=== PATIENT | female | born 1985 | race Caucasian/White ===

== ENCOUNTER 2023-08-12 08:53 | Outpatient (CLI) | payer OTHER, SELFPAY ==
--- NOTE | 2023-08-12 09:02 | US_ITS ---
WS: [id number] RIGHT UPPER QUADRANT ULTRASOUND HISTORY: RUQ PAIN COMPARISON: None available. Liver: 16.1 cm in length. Normal size liver and echogenicity. No bile duct dilatation or mass. Portal Vein: Normal hepatopetal flow with monophasic waveform. Gallbladder: Normally distended gallbladder with no stones or wall thickening. CBD: 0.4 cm Pancreas: Normal size and echogenicity. Right kidney: 10.5 cm in length. Normal size and echogenicity. No hydronephrosis or mass. Aorta and IVC: Unremarkable abdominal aorta and IVC. No ascites. IMPRESSION: Normal RIGHT upper quadrant ultrasound.
--- NOTE | 2023-08-12 09:02 | US_ITS ---
WS: [id number] US pelv w/transvag [id number] HISTORY: ABDOMINAL MASS 2 CM BELOW UMBILICUS COMPARISON: None available. Uterus: 9.6 cm x 5.5 cm x 5.4 cm. Normal size retroverted uterus. No fibroid or mass identified. Endometrium: 1.1 cm. Normal. No mass or increased vascularity. Right ovary: 3.3 cm x 2.3 cm x 3.4 cm. Normal size and vascularity, no cystic or solid masses. Left ovary: 3.4 cm x 1.9 cm x 2.1 cm. Normal size and vascularity, no cystic or solid masses. No free fluid in the cul-de-sac. Imaging performed just below the umbilicus in the area of clinical concern demonstrates no abnormalit y. IMPRESSION: 1. Normal pelvic ultrasound. No fibroid. 2. Normal endometrium. 3. No ultrasound abnormality in the infraumbilical region.
== END 2023-08-12 08:54 | disposition home or self-care (01) ==
LOC: RAD 08:55
PROVIDERS: PCP Nurse Practitioner; Visit Provider Nurse Practitioner
DX: R19.09 Other intra-abdominal and pelvic swelling, mass and lump (principal); R10.11 Right upper quadrant pain
CPT/HCPCS: 76705; 76830; 76856

== ENCOUNTER 2024-06-05 09:16 | Outpatient (CLI) | payer OTHER, SELFPAY ==
--- NOTE | 2024-06-05 09:18 | CT_ITS ---
WS: [id number] CT ABDOMEN WITH AND WITHOUT CONTRAST CONTRAST HISTORY: ABDOMINAL MASS Pre and postcontrast imaging through the abdomen. Oral contrast has been provided. Coronal and sagitt al reformats are submitted. All CT scans at [facility] use at least one of these dose optimiz ation techniques: automated exposure control; mA and/or kV adjustment per patient size (includes targ eted exams where dose is matched to clinical indication); or iterative reconstruction. IV CONTRAST: Omnipaque 350; 100 mL IV. Oral contrast: Yes. DLP: 1372.03 mGy.cm COMPARISON: Pelvic ultrasound 08/12/2023 Lower thorax: Lung bases are clear. Heart is normal size. Small hiatal hernia. Liver/biliary system: Normal size with no intrahepatic dilatation. Gallbladder: Gallbladder is contracted without adjacent inflammation. Probably due to nonfasting. Pancreas: Normal size pancreas and pancreatic duct. No adjacent inflammation. Spleen: Normal size spleen. No mass or infarct. Adrenal glands: Normal. Right kidney: Normal. Left kidney: Normal. Aorta: Normal. Lymphadenopathy: None. Free fluid: None. GI tract: Unremarkable. Abdominal wall: Infraumbilical ventral abdominal wall hernia contains fat only. Orifice is 2.7 cm. Th ere is herniating omentum. There is an additional smaller fat-containing umbilical hernia. Small portion of the uterus was included. Mild fluid distention of the endometrial. May be related to the menstrual cycle. Visualized osseous structures: Unremarkable. CT/CT abdomen wo/w con [id number] IMPRESSION: 1. Infraumbilical midline abdominal wall hernia containing omentum only. 2. Small umbilical hernia containing fat only. 3. No acute abdominal abnormalities are identified. No renal obstruction.
[2024-06-05] MEDS: iohexol 350 mg/mL 500 mL Btl (per mL) IV (10:24)
[2024-06-05] MEDS: iohexol 350 mg/mL 500 mL Btl (per mL) PO (10:24)
== END 2024-06-05 09:17 | disposition home or self-care (01) ==
LOC: RAD 09:17
PROVIDERS: PCP Nurse Practitioner; Visit Provider Nurse Practitioner
DX: R19.00 Intra-abdominal and pelvic swelling, mass and lump, unspecified site (principal); K42.9 Umbilical hernia without obstruction or gangrene; K43.9 Ventral hernia without obstruction or gangrene
CPT/HCPCS: 74170; Q9967

== ENCOUNTER → 2024-07-31 09:05 | Outpatient (BNVA) | payer OTHER, SELFPAY | PROVIDERS: PCP Nurse Practitioner; Referring Provider Nurse Practitioner; Visit Provider Nurse Practitioner Women's Health | DX: Z34.90 Encounter for supervision of normal pregnancy, unspecified, unspecified trimester (principal) | CPT/HCPCS: 80307; 81025; 84443; 85025; 86592; 86762; 86803; 86850; 86900; 87086; 87340; 87491; 87591; 87806 ==

== ENCOUNTER → 2024-08-02 08:06 | Outpatient (BNVA) | payer OTHER, SELFPAY | PROVIDERS: PCP Nurse Practitioner; Visit Provider Nurse Practitioner Women's Health | DX: Z36.87 Encounter for antenatal screening for uncertain dates (principal); Z3A.15 15 weeks gestation of pregnancy | CPT/HCPCS: 76815 ==

== ENCOUNTER → 2024-09-06 09:36 | Outpatient (BNVA) | payer OTHER, SELFPAY | PROVIDERS: PCP Nurse Practitioner; Visit Provider Obstetrics & Gynecology | DX: Z34.92 Encounter for supervision of normal pregnancy, unspecified, second trimester (principal); Z3A.20 20 weeks gestation of pregnancy | CPT/HCPCS: 76805 ==

== ENCOUNTER → 2024-10-02 08:46 | Outpatient (BNVA) | payer OTHER, SELFPAY | PROVIDERS: PCP Nurse Practitioner; Visit Provider Nurse Practitioner Women's Health | DX: Z34.90 Encounter for supervision of normal pregnancy, unspecified, unspecified trimester (principal) | CPT/HCPCS: 82950; 84315; 87491; 87591; 87661 ==

== ENCOUNTER → 2024-11-06 14:38 | Outpatient (BNVA) | payer OTHER, SELFPAY | PROVIDERS: PCP Nurse Practitioner; Visit Provider Obstetrics & Gynecology | DX: O09.90 Supervision of high risk pregnancy, unspecified, unspecified trimester (principal); Z3A.28 28 weeks gestation of pregnancy | CPT/HCPCS: 84315 ==

== ENCOUNTER → 2024-11-13 13:59 | Outpatient (BNVA) | payer OTHER, SELFPAY | PROVIDERS: PCP Nurse Practitioner; Visit Provider Obstetrics & Gynecology | DX: Z34.80 Encounter for supervision of other normal pregnancy, unspecified trimester (principal) | CPT/HCPCS: 84315 ==

== ENCOUNTER → 2024-11-27 11:05 | Outpatient (BNVA) | payer OTHER, SELFPAY | PROVIDERS: PCP Nurse Practitioner; Visit Provider Obstetrics & Gynecology | DX: Z34.83 Encounter for supervision of other normal pregnancy, third trimester (principal) | CPT/HCPCS: 84315 ==

== ENCOUNTER → 2024-12-20 13:18 | Outpatient (BNVA) | payer OTHER, SELFPAY | PROVIDERS: PCP Nurse Practitioner; Visit Provider Nurse Practitioner Women's Health | DX: O35.9XX0 Maternal care for (suspected) fetal abnormality and damage, unspecified, not applicable or unspecified (principal); Z3A.35 35 weeks gestation of pregnancy | CPT/HCPCS: 76816 ==

== ENCOUNTER → 2024-12-25 10:39 | Outpatient (BNVA) | payer OTHER, SELFPAY | PROVIDERS: PCP Nurse Practitioner; Visit Provider Obstetrics & Gynecology | DX: O09.93 Supervision of high risk pregnancy, unspecified, third trimester (principal) | CPT/HCPCS: 84315; 87081 ==

== ENCOUNTER → 2025-01-01 09:42 | Outpatient (BNVA) | payer OTHER, SELFPAY | PROVIDERS: PCP Nurse Practitioner; Visit Provider Obstetrics & Gynecology | DX: O09.893 Supervision of other high risk pregnancies, third trimester (principal) | CPT/HCPCS: 84315 ==

== ENCOUNTER → 2025-01-08 10:11 | Outpatient (BNVA) | payer OTHER, SELFPAY | PROVIDERS: PCP Nurse Practitioner; Visit Provider Obstetrics & Gynecology | DX: O09.899 Supervision of other high risk pregnancies, unspecified trimester (principal) | CPT/HCPCS: 84315 ==

== ENCOUNTER 2025-01-12 05:35 | Inpatient (IN) | payer OTHER, SELFPAY ==
--- NOTE | 2025-01-10 11:00 | ANES.PREANE2 ---
Pre-Anesthetic Assessment Height/Weight: Height 1.7 m Operation Date: 01/12/25 07:20 Proposed Procedures p Section Repeat 08612, O34.219(Not Applicable) - Peter Kam MD Familial anesthetic complications: None Was Beta Conor taken within 24 hours: N/A Was Clonidine taken within 24 hours: N/A Social Tobacco and No alcohol Exam alert, oriented x 3, clear to auscultation bilaterally and regular rate & rhythm Airway Mallampati: Class I Dentition: chipped and other (3 missing) Anesthetic Plan ASA status: 2 Anesthesia: Regional (specify below) Other: spinal Risk of > 500 ml blood loss (7ml/kg in children): Yes, adequate IV access and fluids planned Other Pertinent Information Advanced maternal age Medications/Allergies Home Medications ?Medication ?Instructions ?Recorded ?Confirmed ?Last Taken ?Type vits no.126-ferrous fum tab PO 07/31/24 01/08/25 Unknown History 28 mg iron-folic acid 800 mcg tablet (Classic ) acetaminophen 325 mg capsule 325 mg PO QID PRN 09/25/24 01/08/25 Unknown History Allergies Allergy/AdvReac Type Severity Reaction Status Date / Time No Known Allergies Allergy Verified 01/08/25 10:18 [facility] Anesthesia Medical History delivery delivered Family History Father Hypertension Diabetes High cholesterol Social History Smoking and tobacco/nicotine status: current some day tobacco/nicotine user Data Anesthesia Cardiac Studies: No Data to Display
[2025-01-12] VITALS (33 sets, daily range): BP systolic 97–127; BP diastolic 47–75; PULSE 55–83; RESP 15–17; TEMP 36.8–37; O2SAT 98; BMI 34.0
--- OUTSIDE RECORDS SUMMARY | 2025-01-12 05:40 | XMS_ITS | Continuity of Care Document ---
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 It does not include entries that were removed or entered in error. Problem Status Onset Date Problem Type Date of Resolution Comments Source Adult-onset obesity (SNOMED CT 090036756) Active Condition [place] [facility] Anxiety disorder Active Condition [place] [facility] Depressed Active Condition [place] [facility] Exposure to potentially hazardous substance Active Condition [facility] Hip Pain Active Condition [place] [facility] Hyperlipidemia (SCT 30114490) Active Condition [facility] Low back pain (SNOMED CT 263440323) Active Condition [place] [facility] Nicotine dependence (SNOMED CT 77618997) Active Condition [place] [facility] Psoriasis (SNOMED CT 6732920) Active Condition [place] [facility] Sacroiliitis (ICD-9-CM 720.2) Active Condition [place] [facility] Seasonal allergic rhinitis (SNOMED CT 516435725) Active Condition [place] [facility] Vitamin D Deficiency (SCT 5861221) Active Condition [facility] Routine General Medical Examination at a Health Care Facility * Inactive Condition 08/09/2019 [place] [facility] Diagnosis: ICD-10-CM Z3A.34 34 weeks gestation of Active Diagnosis [place] [facility] Diagnosis: ICD-10-CM R68.89 Other general symptoms and signs Active Diagnosis [place] [facility] Diagnosis: ICD-10-CM Z12.39 Encounter for oth screening for malignant neoplasm of breast Active Diagnosis [place] [facility] Diagnosis: ICD-10-CM Z3A.11 11 weeks gestation of Active Diagnosis [place] [facility] Diagnosis: ICD-10-CM Z3A.20 20 weeks gestation of Active Diagnosis [place] [facility] Diagnosis: ICD-10-CM Z00.00 Encntr for general adult medical exam w/o abnormal findings Active Diagnosis [facility] Diagnosis: ICD-10-CM R19.09 Other intra-abdominal and pelvic swelling, mass and lump Active Diagnosis [facility] Diagnosis: ICD-10-CM R19.07 Generalized intra-abd and pelvic swelling, mass and lump Active Diagnosis [facility] Diagnosis: ICD-10-CM Z00.01 Encounter for general adult medical exam w abnormal findings Active Diagnosis [facility] Medications Combined list of outpatient medications from [facility] and [facility] facilities.Medications provided include 1) outpatient medications from the last 15 months, and 2) patient-reported medications. Medication Details Route Status Patient Instructions Prescription Expires Prescription Number Last Dispense Date Ordering Provider Order Date Order Qty Source MULTIVITAMI NS W/MINERALS, CAP/TAB TAKE 1 TABLET BY MOUTH ONCE A DAY FOR NUTRITIO N/DIETAR Y SUPPLEME NTATION TAKE WITH FOOD ORAL ACTIVE 07/10/2025 [id number] Tonio RUELAS R 2023 100 [facility] NYSTATIN [id number]/G M CREAM,TOP APPLY LIBERALL Y TO AFFECTED AREA(S) ONCE A DAY NEEDED FOR FUNGAL SKIN INFECTIO N - TOPICAL USE ONLY. TOPICA L ACTIVE 05/31/2025 [id number] 4 Tonio RUELAS R 2023 45 [facility] Allergies, Adverse Reactions, Alerts Combined list of allergies from [facility] and [facility] facilities. It does not include entries that were removed or entered in error. Substance Category Reaction Severity Reaction type Status Date Reported Comments Source WELLBUTRIN Propensity to adverse reactions to drug (finding) Urticaria active 1 [facility] Immunizations Combined list of available immunizations from the [facility] and [facility] facilities. 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 INFLUENZA, INJECTABLE, QUADRIVALENT, PRESERVATIVE FREE 2017 150 complet ed [facility] INFLUENZA, SEASONAL, INJECTABLE, PRESERVATIVE FREE 2014 140 complet ed [facility] PNEUMOCOCCAL POLYSACCHARID E PPV23 2014 33 complet ed [facility] Results Combined list of recent chemistry, hematology and other laboratory results from Department of Defense and Veterans Affairs, ranging from 15 months to all on record, depending upon the facility. Order Name Results Value Reference Range Date Interpretation Specimen Comments Source ANCILLARY HCG-PB CHORIOGONAD OTROPIN ( TEST) [PRESENCE] IN URINE Positive 07/03 Specimen Type: URINE Comment: Test performed by: Marah Bowers [id number] Meter #: [id number] Ordering Provider: EZEKIEL RUELAS R Report Released Date/Time: Jul 03, 2024 09:53 AM Reporting Lab: [facility] [address] [facility] [address] Performing Lab: [facility] [address] [facility] [address] [facility] VITAMIN D, 25-HYDROX Y 25-HYDROXYV ITAMIN D3 [MASS/VOLUM E] IN SERUM OR PLASMA 26.6 ng/mL 30 - 96 07/03 L Specimen Type: SERUM No comment entered. Ordering Provider: EZEKIEL RUELAS R Report Released Date/Time: Jul 03, 2024 08:20 AM Reporting Lab: [place] [facility] [address] [place] [address] Performing Lab: [place] [facility] [address] [place] [address] [facility] TSH (MA-PB) THYROTROPIN [UNITS/VOLU ME] IN SERUM OR PLASMA 0.794 u[IU]/mL 0.47 - 5 07/03 Specimen Type: SERUM No comment entered. Ordering Provider: EZEKIEL RUELAS R Report Released Date/Time: Jul 03, 2024 08:20 AM Reporting Lab: [place] [facility] [address] [place] [address] Performing Lab: [place] [facility] [address] [place] [address] [facility] CHOLESTER OL PANEL (PB) CHOLESTEROL [MASS/VOLUM E] IN SERUM OR PLASMA 154 mg/dL 0 - 200 07/03 Specimen Type: PLASMA No comment entered. Ordering Provider: EZEKIEL RUELAS R Report Released Date/Time: Jul 03, 2024 08:20 AM Reporting Lab: [place] [facility] [address] [place] [address] Performing Lab: [place] [facility] [address] [place] [address] [facility] CHOLESTER OL PANEL (PB) TRIGLYCERID E [MASS/VOLUM E] IN SERUM OR PLASMA 109 mg/dL 0 - 150 07/03 Specimen Type: PLASMA No comment entered. Ordering Provider: EZEKIEL RUELAS R Report Released Date/Time: Jul 03, 2024 08:20 AM Reporting Lab: [place] [facility] [address] [place] [address] Performing Lab: [place] [facility] [address] [place] [address] [facility] CHOLESTER OL PANEL (PB) CHOLESTEROL IN LDL [MASS/VOLUM E] IN SERUM OR PLASMA BY CALCULATION 95.2 mg/dL 07/03 Specimen Type: PLASMA No comment entered. Ordering Provider: EZEKIEL RUELAS R Report Released Date/Time: Jul 03, 2024 08:20 AM Reporting Lab: [place] [facility] [address] [place] [address] Performing Lab: [place] [facility] [address] [place] [address] [facility] CHOLESTER OL PANEL (PB) CHOLESTEROL IN HDL [MASS/VOLUM E] IN SERUM OR PLASMA 37.0 mg/dL 40 07/03 L Specimen Type: PLASMA No comment entered. Ordering Provider: EZEKIEL RUELAS R Report Released Date/Time: Jul 03, 2024 08:20 AM Reporting Lab: [place] [facility] [address] [place] [address] Performing Lab: [place] [facility] [address] [place] [address] [facility] CHOLESTER OL PANEL (PB) CHOLESTEROL IN HDL/CHOLEST KING.TOTAL [MASS RATIO] IN SERUM OR PLASMA 24.0 25 07/03 Specimen Type: PLASMA No comment entered. Ordering Provider: EZEKIEL RUELAS R Report Released Date/Time: Jul 03, 2024 08:20 AM Reporting Lab: [place] [facility] [address] [place] [address] Performing Lab: [place] [facility] [address] [place] [address] [facility] URINALYSI S (STL-PB) COLOR OF URINE Colorless 07/03 Specimen Type: URINE No comment entered. Ordering Provider: EZEKIEL RUELAS R Report Released Date/Time: Jul 03, 2024 08:20 AM Reporting Lab: [place] [facility] [address] [place] [address] Performing Lab: [place] [facility] [address] [place] [address] [facility] URINALYSI S (STL-PB) BILIRUBIN.T OTAL [PRESENCE] IN URINE BY TEST STRIP NEGATIVEm g/dL 07/03 Specimen Type: URINE No comment entered. Ordering Provider: EZEKIEL RUELAS R Report Released Date/Time: Jul 03, 2024 08:20 AM Reporting Lab: [place] [facility] [address] [place] [address] Performing Lab: [place] [facility] [address] [place] [address] [facility] URINALYSI S (STL-PB) PH OF URINE BY TEST STRIP 7.5 5.0 - 8.0 07/03 Specimen Type: URINE No comment entered. Ordering Provider: EZEKIEL RUELAS R Report Released Date/Time: Jul 03, 2024 08:20 AM Reporting Lab: [place] [facility] [address] [place] [address] Performing Lab: [place] [facility] [address] [place] [address] [facility] URINALYSI S (STL-PB) APPEARANCE OF URINE CLEAR 07/03 Specimen Type: URINE No comment entered. Ordering Provider: EZEKIEL RUELAS R Report Released Date/Time: Jul 03, 2024 08:20 AM Reporting Lab: [place] [facility] [address] [place] [address] Performing Lab: [place] [facility] [address] [place] [address] [facility] URINALYSI S (STL-PB) NITRITE [PRESENCE] IN URINE BY TEST STRIP NEGATIVEm g/dL 07/03 Specimen Type: URINE No comment entered. Ordering Provider: EZEKIEL RUELAS R Report Released Date/Time: Jul 03, 2024 08:20 AM Reporting Lab: [place] [facility] [address] [place] [address] Performing Lab: [place] [facility] [address] [place] [address] [facility] URINALYSI S (STL-PB) GLUCOSE [MASS/VOLUM E] IN URINE BY TEST STRIP NORMALmg/ dL 07/03 Specimen Type: URINE No comment entered. Ordering Provider: EZEKIEL RUELAS R Report Released Date/Time: Jul 03, 2024 08:20 AM Reporting Lab: [place] [facility] [address] [place] [phone] Performing Lab: [place] [facility] [address] [place] [address] [facility] URINALYSI S (STL-PB) PROTEIN [MASS/VOLUM E] IN URINE BY TEST STRIP NEGATIVEm g/dL - 20 07/03 Specimen Type: URINE No comment entered. Ordering Provider: EZEKIEL RUELAS R Report Released Date/Time: Jul 03, 2024 08:20 AM Reporting Lab: [place] [facility] [address] [place] [address] Performing Lab: [place] [facility] [address] [place] [address] [facility] URINALYSI S (STL-PB) URN.UROBILI NOGEN NORMALmg/ dL 07/03 Specimen Type: URINE No comment entered. Ordering Provider: EZEKIEL RUELAS R Report Released Date/Time: Jul 03, 2024 08:20 AM Reporting Lab: [place] [facility] [address] [place] [phone] Performing Lab: [place] [facility] [address] [place] [address] [facility] URINALYSI S (STL-PB) HEMOGLOBIN [MASS/VOLUM E] IN URINE BY TEST STRIP NEGATIVEm g/dL 07/03 Specimen Type: URINE No comment entered. Ordering Provider: EZEKIEL RUELAS R Report Released Date/Time: Jul 03, 2024 08:20 AM Reporting Lab: [place] [facility] [address] [place] [address] Performing Lab: [place] [facility] [address] [place] [address] [facility] URINALYSI S (STL-PB) KETONES [MASS/VOLUM E] IN URINE BY TEST STRIP NEGATIVEm g/dL 07/03 Specimen Type: URINE No comment entered. Ordering Provider: EZEKIEL RUELAS R Report Released Date/Time: Jul 03, 2024 08:20 AM Reporting Lab: [place] [facility] [address] [place] [address] Performing Lab: [place] [facility] [address] [place] [address] [facility] URINALYSI S (STL-PB) URN.LEUK.ES T. NEGATIVE 07/03 Specimen Type: URINE No comment entered. Ordering Provider: EZEKIEL RUELAS R Report Released Date/Time: Jul 03, 2024 08:20 AM Reporting Lab: [place] [facility] [address] [place] [phone] Performing Lab: [place] [facility] [address] [place] [address] [facility] URINALYSI S (STL-PB) SPECIFIC GRAVITY OF URINE 1.005 1.005 - 1.029 07/03 Specimen Type: URINE No comment entered. Ordering Provider: EZEKIEL RUELAS R Report Released Date/Time: Jul 03, 2024 08:20 AM Reporting Lab: [place] [facility] [address] [place] [address] Performing Lab: [place] [facility] [address] [place] [address] [facility] HGA1C HEMOGLOBIN A1C/HEMOGLO BIN.TOTAL IN BLOOD 5.6 4.0 - 6.0 07/03 Specimen Type: BLOOD No comment entered. Ordering Provider: EZEKIEL RUELAS R Report Released Date/Time: Jul 03, 2024 08:20 AM Reporting Lab: [place] [facility] [address] [place] [address] Performing Lab: [place] [facility] [address] [place] [address] [facility] COMPREHEN SIVE METABOLIC PANEL CREATININE [MASS/VOLUM E] IN SERUM OR PLASMA 0.66 mg/dL 0.6 - 1.1 07/03 Specimen Type: PLASMA No comment entered. Ordering Provider: EZEKIEL RUELAS R Report Released Date/Time: Jul 03, 2024 08:20 AM Reporting Lab: [place] [facility] [address] [place] [address] Performing Lab: [place] [facility] [address] [place] [address] [facility] COMPREHEN SIVE METABOLIC PANEL UREA NITROGEN [MASS/VOLUM E] IN SERUM OR PLASMA 5 mg/dL 9 - 25 07/03 L Specimen Type: PLASMA No comment entered. Ordering Provider: EZEKILE RUELAS R Report Released Date/Time: Jul 03, 2024 08:20 AM Reporting Lab: [place] [facility] [address] [place] [address] Performing Lab: [place] [facility] [address] [place] [address] [facility] COMPREHEN SIVE METABOLIC PANEL GLUCOSE [MASS/VOLUM E] IN SERUM OR PLASMA 85 mg/dL 72 - 99 07/03 Specimen Type: PLASMA No comment entered. Ordering Provider: EZEKIEL RUELAS R Report Released Date/Time: Jul 03, 2024 08:20 AM Reporting Lab: [place] [facility] [address] [place] [address] Performing Lab: [place] [facility] [address] [place] [address] [facility] COMPREHEN SIVE METABOLIC PANEL SODIUM [MOLES/VOLU ME] IN SERUM OR PLASMA 136 meq/L 136 - 145 07/03 Specimen Type: PLASMA No comment entered. Ordering Provider: EZEKIEL RUELAS R Report Released Date/Time: Jul 03, 2024 08:20 AM Reporting Lab: [place] [facility] [address] [place] [address] Performing Lab: [place] [facility] [address] [place] [address] [facility] COMPREHEN SIVE METABOLIC PANEL POTASSIUM [MOLES/VOLU ME] IN SERUM OR PLASMA 4.2 meq/L 3.5 - 5 07/03 Specimen Type: PLASMA No comment entered. Ordering Provider: EZEKIEL RUELAS R Report Released Date/Time: Jul 03, 2024 08:20 AM Reporting Lab: [place] [facility] [address] [place] [address] Performing Lab: [place] [facility] [address] [place] [address] [facility] COMPREHEN SIVE METABOLIC PANEL CHLORIDE [MOLES/VOLU ME] IN SERUM OR PLASMA 107 meq/L 98 - 107 07/03 Specimen Type: PLASMA No comment entered. Ordering Provider: EZEKIEL RUELAS R Report Released Date/Time: Jul 03, 2024 08:20 AM Reporting Lab: [place] [facility] [address] [place] [address] Performing Lab: [place] [facility] [address] [place] [address] [facility] COMPREHEN SIVE METABOLIC PANEL CARBON DIOXIDE, TOTAL [MOLES/VOLU ME] IN SERUM OR PLASMA 20 meq/L 22 - 31 07/03 L Specimen Type: PLASMA No comment entered. Ordering Provider: EZEKIEL RUELAS R Report Released Date/Time: Jul 03, 2024 08:20 AM Reporting Lab: [place] [facility] [address] [place] [address] Performing Lab: [place] [facility] [address] [place] [address] [facility] COMPREHEN SIVE METABOLIC PANEL CALCIUM [MASS/VOLUM E] IN SERUM OR PLASMA 9.2 mg/dL 8.4 - 10.4 07/03 Specimen Type: PLASMA No comment entered. Ordering Provider: EZEKIEL RUELAS R Report Released Date/Time: Jul 03, 2024 08:20 AM Reporting Lab: [place] [facility] [address] [place] [address] Performing Lab: [place] [facility] [address] [place] [address] [facility] COMPREHEN SIVE METABOLIC PANEL PROTEIN [MASS/VOLUM E] IN SERUM OR PLASMA 6.6 g/dL 6 - 8.6 07/03 Specimen Type: PLASMA No comment entered. Ordering Provider: EZEKIEL RUELAS R Report Released Date/Time: Jul 03, 2024 08:20 AM Reporting Lab: [place] [facility] [address] [place] [address] Performing Lab: [place] [facility] [address] [place] [address] [facility] COMPREHEN SIVE METABOLIC PANEL ALBUMIN [MASS/VOLUM E] IN SERUM OR PLASMA 4.0 g/dL 3.4 - 5 07/03 Specimen Type: PLASMA No comment entered. Ordering Provider: EZEKIEL RUELAS R Report Released Date/Time: Jul 03, 2024 08:20 AM Reporting Lab: [place] [facility] [address] [place] [address] Performing Lab: [place] [facility] [address] [place] [address] [facility] COMPREHEN SIVE METABOLIC PANEL BILIRUBIN.T OTAL [MASS/VOLUM E] IN SERUM OR PLASMA 0.2 mg/dL 0.2 - 1.2 07/03 Specimen Type: PLASMA No comment entered. Ordering Provider: EZEKIEL RUELAS R Report Released Date/Time: Jul 03, 2024 08:20 AM Reporting Lab: [place] [facility] [address] [place] [address] Performing Lab: [place] [facility] [address] [place] [address] [facility] COMPREHEN SIVE METABOLIC PANEL ALKALINE PHOSPHATASE [ENZYMATIC ACTIVITY/VO LUME] IN SERUM OR PLASMA 38 U/L 40 - 150 07/03 L Specimen Type: PLASMA No comment entered. Ordering Provider: EZEKIEL RUELAS R Report Released Date/Time: Jul 03, 2024 08:20 AM Reporting Lab: [place] [facility] [address] [place] [address] Performing Lab: [place] [facility] [address] [place] [address] [facility] COMPREHEN SIVE METABOLIC PANEL ASPARTATE AMINOTRANSF ERASE [ENZYMATIC ACTIVITY/VO LUME] IN SERUM OR PLASMA 15 U/L 5 - 34 07/03 Specimen Type: PLASMA No comment entered. Ordering Provider: EZEKIEL RUELAS R Report Released Date/Time: Jul 03, 2024 08:20 AM Reporting Lab: [place] [facility] [address] [place] [address] Performing Lab: [place] [facility] [address] [place] [facility] [facility] COMPREHEN SIVE METABOLIC PANEL ALANINE AMINOTRANSF ERASE [ENZYMATIC ACTIVITY/VO LUME] IN SERUM OR PLASMA 18 U/L 8 - 40 07/03 Specimen Type: PLASMA No comment entered. Ordering Provider: EZEKIEL RUELAS R Report Released Date/Time: Jul 03, 2024 08:20 AM Reporting Lab: [place] [facility] [address] [place] [address] Performing Lab: [place] [facility] [address] [place] [address] [facility] COMPREHEN SIVE METABOLIC PANEL GLOMERULAR FILTRATION RATE/1.73 SQ M.PREDICTED [VOLUME RATE/AREA] IN SERUM, PLASMA OR BLOOD BY CREATININE- BASED FORMULA (CKD-EPI 2020) 114 07/03 Specimen Type: PLASMA No comment entered. Ordering Provider: EZEKIEL RUELAS R Report Released Date/Time: Jul 03, 2024 08:20 AM Reporting Lab: [place] [facility] [address] [place] [phone] Performing Lab: [place] [facility] [address] [place] [address] [facility] CBC LEUKOCYTES [#/VOLUME] IN BLOOD BY AUTOMATED COUNT 14.2 10*3/uL 3.6 - 11.2 07/03 H Specimen Type: BLOOD No comment entered. Ordering Provider: EZEKIEL RUELAS R Report Released Date/Time: Jul 03, 2024 08:20 AM Reporting Lab: [place] [facility] [address] [place] [id number] Performing Lab: [place] [facility] [address] [place] [address] [facility] CBC ERYTHROCYTE S [#/VOLUME] IN BLOOD BY AUTOMATED COUNT 4.62 10*6/uL 3.60 - 5.00 07/03 Specimen Type: BLOOD No comment entered. Ordering Provider: EZEKIEL RUELAS R Report Released Date/Time: Jul 03, 2024 08:20 AM Reporting Lab: [place] [facility] [address] [place] [id number] Performing Lab: [place] [facility] [address] [place] [id number] [facility] CBC HEMOGLOBIN [MASS/VOLUM E] IN BLOOD 14.4 g/dL 11.0 - 14.9 07/03 Specimen Type: BLOOD No comment entered. Ordering Provider: EZEKIEL RUELAS R Report Released Date/Time: Jul 03, 2024 08:20 AM Reporting Lab: [place] [facility] [address] [place] [id number] Performing Lab: [place] [facility] [address] [place] [id number] [facility] CBC HEMATOCRIT [VOLUME FRACTION] OF BLOOD 41.6 32.6 - 43.4 07/03 Specimen Type: BLOOD No comment entered. Ordering Provider: EZEKIEL RUELAS R Report Released Date/Time: Jul 03, 2024 08:20 AM Reporting Lab: [place] [facility] [address] [place] [facility] Performing Lab: [place] [facility] [address] [place] [id number] [facility] CBC MCV [ENTITIC VOLUME] BY AUTOMATED COUNT 90.0 fL 80.0 - 100.0 07/03 Specimen Type: BLOOD No comment entered. Ordering Provider: EZEKIEL RUELAS R Report Released Date/Time: Jul 03, 2024 08:20 AM Reporting Lab: [place] [facility] [address] [place] [address] Performing Lab: [place] [facility] [address] [place] [address] [facility] CBC MCH [ENTITIC MASS] BY AUTOMATED COUNT 31.2 pg 27.0 - 34.0 07/03 Specimen Type: BLOOD No comment entered. Ordering Provider: EZEKIEL RUELAS R Report Released Date/Time: Jul 03, 2024 08:20 AM Reporting Lab: [place] [facility] [address] [place] [phone] Performing Lab: [place] [facility] [address] [place] [address] [facility] CBC MCHC [MASS/VOLUM E] BY AUTOMATED COUNT 34.6 g/dL 33.0 - 36.0 07/03 Specimen Type: BLOOD No comment entered. Ordering Provider: EZEKIEL RUELAS R Report Released Date/Time: Jul 03, 2024 08:20 AM Reporting Lab: [place] [facility] [address] [place] [phone] Performing Lab: [place] [facility] [address] [place] [address] [facility] CBC PLATELETS [#/VOLUME] IN BLOOD BY AUTOMATED COUNT 327 10*3/uL 150 - 400 07/03 Specimen Type: BLOOD No comment entered. Ordering Provider: EZEKIEL RUELAS R Report Released Date/Time: Jul 03, 2024 08:20 AM Reporting Lab: [place] [facility] [address] [place] [phone] Performing Lab: [place] [facility] [address] [place] [address] [facility] CBC PLATELET MEAN VOLUME [ENTITIC VOLUME] IN BLOOD BY AUTOMATED COUNT 11.2 fL 7.5 - 11.2 07/03 Specimen Type: BLOOD No comment entered. Ordering Provider: EZEKIEL RUELAS R Report Released Date/Time: Jul 03, 2024 08:20 AM Reporting Lab: [place] [facility] [address] [place] [address] Performing Lab: [place] [facility] [address] [place] [address] [facility] CBC ERYTHROCYTE DISTRIBUTIO N WIDTH [RATIO] BY AUTOMATED COUNT 13.2 11.8 - 15.1 07/03 Specimen Type: BLOOD No comment entered. Ordering Provider: EZEKIEL RUELAS R Report Released Date/Time: Jul 03, 2024 08:20 AM Reporting Lab: [place] [facility] [address] [place] [phone] Performing Lab: [place] [facility] [address] [place] [address] [facility] CBC LYMPHOCYTES /100 LEUKOCYTES IN BLOOD BY AUTOMATED COUNT 13.7 07/03 Specimen Type: BLOOD No comment entered. Ordering Provider: EZEKIEL RUELAS R Report Released Date/Time: Jul 03, 2024 08:20 AM Reporting Lab: [place] [facility] [address] [place] [phone] Performing Lab: [place] [facility] [address] [place] [address] [facility] CBC MONOCYTES/1 00 LEUKOCYTES IN BLOOD BY AUTOMATED COUNT 5.1 07/03 Specimen Type: BLOOD No comment entered. Ordering Provider: EZEKIEL RUELAS R Report Released Date/Time: Jul 03, 2024 08:20 AM Reporting Lab: [place] [facility] [address] [place] [id number] Performing Lab: [place] [facility] [address] [place] [address] [facility] CBC NEUTROPHILS /100 LEUKOCYTES IN BLOOD BY AUTOMATED COUNT 77.6 07/03 Specimen Type: BLOOD No comment entered. Ordering Provider: EZEKIEL RUELAS R Report Released Date/Time: Jul 03, 2024 08:20 AM Reporting Lab: [place] [facility] [address] [place] [address] Performing Lab: [place] [facility] [address] [place] [address] [facility] CBC EOSINOPHILS /100 LEUKOCYTES IN BLOOD BY AUTOMATED COUNT 2.4 07/03 Specimen Type: BLOOD No comment entered. Ordering Provider: EZEKIEL RUELAS R Report Released Date/Time: Jul 03, 2024 08:20 AM Reporting Lab: [place] [facility] [address] [place] [address] Performing Lab: [place] [facility] [address] [place] [address] [place] [address] [facility] CBC BASOPHILS/1 00 LEUKOCYTES IN BLOOD BY AUTOMATED COUNT 0.6 07/03 Specimen Type: BLOOD No comment entered. Ordering Provider: EZEKIEL RUELAS R Report Released Date/Time: Jul 03, 2024 08:20 AM Reporting Lab: [place] [facility] [address] [place] [address] Performing Lab: [place] [facility] [address] [place] [address] [place] [address] [facility] CBC LYMPHOCYTES [#/VOLUME] IN BLOOD BY AUTOMATED COUNT 1.94 10*3/uL 0.77 - 4.50 07/03 Specimen Type: BLOOD No comment entered. Ordering Provider: EZEKIEL RUELAS R Report Released Date/Time: Jul 03, 2024 08:20 AM Reporting Lab: [place] [facility] [address] [place] [address] Performing Lab: [place] [facility] [address] [place] [address] [facility] CBC MONOCYTES [#/VOLUME] IN BLOOD BY AUTOMATED COUNT 0.73 10*3/uL 0.19 - 0.8 07/03 Specimen Type: BLOOD No comment entered. Ordering Provider: EZEKIEL RUELAS R Report Released Date/Time: Jul 03, 2024 08:20 AM Reporting Lab: [place] [facility] [address] [place] [phone] Performing Lab: [place] [facility] [address] [place] [address] [facility] CBC NEUTROPHILS [#/VOLUME] IN BLOOD BY AUTOMATED COUNT 11.01 10*3/uL 2.10 - 8.00 07/03 H Specimen Type: BLOOD No comment entered. Ordering Provider: EZEKIEL RUELAS R Report Released Date/Time: Jul 03, 2024 08:20 AM Reporting Lab: [place] [facility] [address] [place] [address] Performing Lab: [place] [facility] [address] [place] [address] [facility] CBC EOSINOPHILS [#/VOLUME] IN BLOOD BY AUTOMATED COUNT 0.34 10*3/uL 0.00 - 0.60 07/03 Specimen Type: BLOOD No comment entered. Ordering Provider: EZEKIEL RUELAS R Report Released Date/Time: Jul 03, 2024 08:20 AM Reporting Lab: [place] [facility] [address] [place] [address] Performing Lab: [place] [facility] [address] [place] [address] [facility] CBC BASOPHILS [#/VOLUME] IN BLOOD BY AUTOMATED COUNT 0.08 10*3/uL 0.00 - 0.20 07/03 Specimen Type: BLOOD No comment entered. Ordering Provider: EZEKIEL RUELAS R Report Released Date/Time: Jul 03, 2024 08:20 AM Reporting Lab: [place] [facility] [address] [place] [address] Performing Lab: [place] [facility] [address] [place] [address] [facility] CBC IMMATURE GRANULOCYTE S/100 LEUKOCYTES IN BLOOD BY AUTOMATED COUNT 0.6 07/03 Specimen Type: BLOOD No comment entered. Ordering Provider: EZEKIEL RUELAS R Report Released Date/Time: Jul 03, 2024 08:20 AM Reporting Lab: [place] [facility] [address] [place] [address] Performing Lab: [place] [facility] [address] [place] [facility] [facility] CBC IMMATURE GRANULOCYTE S [#/VOLUME] IN BLOOD BY AUTOMATED COUNT 0.09 10*3/uL 0.00 - 0.05 07/03 H Specimen Type: BLOOD No comment entered. Ordering Provider: EZEKIEL RUELAS R Report Released Date/Time: Jul 03, 2024 08:20 AM Reporting Lab: [place] [facility] [address] [place] [address] Performing Lab: [place] [facility] [address] [place] [address] [facility] BASIC METABOLIC PANEL CREATININE [MASS/VOLUM E] IN SERUM OR PLASMA 0.79 mg/dL 0.6 - 1.1 05/24 Specimen Type: PLASMA No comment entered. Ordering Provider: EZEKIEL RUELAS R Report Released Date/Time: May 24, 2024 11:07 AM Reporting Lab: [place] [facility] [address] [place] [address] Performing Lab: [place] [facility] [address] [place] [address] [facility] BASIC METABOLIC PANEL UREA NITROGEN [MASS/VOLUM E] IN SERUM OR PLASMA 10 mg/dL 9 - 25 05/24 Specimen Type: PLASMA No comment entered. Ordering Provider: EZEKIEL RUELAS R Report Released Date/Time: May 24, 2024 11:07 AM Reporting Lab: [place] [facility] [address] [place] [address] Performing Lab: [place] [facility] [address] [place] [facility] [facility] BASIC METABOLIC PANEL GLUCOSE [MASS/VOLUM E] IN SERUM OR PLASMA 90 mg/dL 72 - 99 05/24 Specimen Type: PLASMA No comment entered. Ordering Provider: EZEKIEL RUELAS R Report Released Date/Time: May 24, 2024 11:07 AM Reporting Lab: [place] [facility] [address] [place] [facility] Performing Lab: [place] [facility] [address] [place] [address] [facility] BASIC METABOLIC PANEL SODIUM [MOLES/VOLU ME] IN SERUM OR PLASMA 136 meq/L 136 - 145 05/24 Specimen Type: PLASMA No comment entered. Ordering Provider: EZEKIEL RUELAS R Report Released Date/Time: May 24, 2024 11:07 AM Reporting Lab: [place] [facility] [address] [place] [address] Performing Lab: [place] [facility] [address] [place] [address] [facility] BASIC METABOLIC PANEL POTASSIUM [MOLES/VOLU ME] IN SERUM OR PLASMA 4.1 meq/L 3.5 - 5 05/24 Specimen Type: PLASMA No comment entered. Ordering Provider: EZEKIEL RUELAS R Report Released Date/Time: May 24, 2024 11:07 AM Reporting Lab: [place] [facility] [address] [place] [address] Performing Lab: [place] [facility] [address] [place] [facility] [facility] BASIC METABOLIC PANEL CHLORIDE [MOLES/VOLU ME] IN SERUM OR PLASMA 106 meq/L 98 - 107 05/24 Specimen Type: PLASMA No comment entered. Ordering Provider: EZEKIEL RUELAS R Report Released Date/Time: May 24, 2024 11:07 AM Reporting Lab: [place] [facility] [address] [place] [address] Performing Lab: [place] [facility] [address] [place] [address] [facility] BASIC METABOLIC PANEL CARBON DIOXIDE, TOTAL [MOLES/VOLU ME] IN SERUM OR PLASMA 22 meq/L 22 - 31 05/24 Specimen Type: PLASMA No comment entered. Ordering Provider: EZEKIEL RUELAS R Report Released Date/Time: May 24, 2024 11:07 AM Reporting Lab: [place] [facility] [address] [place] [address] Performing Lab: [place] [facility] [address] [place] [address] [facility] BASIC METABOLIC PANEL CALCIUM [MASS/VOLUM E] IN SERUM OR PLASMA 9.1 mg/dL 8.4 - 10.4 05/24 Specimen Type: PLASMA No comment entered. Ordering Provider: EZEKIEL RUELAS R Report Released Date/Time: May 24, 2024 11:07 AM Reporting Lab: [place] [facility] [address] [place] [address] Performing Lab: [place] [facility] [address] [place] [address] [facility] BASIC METABOLIC PANEL GLOMERULAR FILTRATION RATE/1.73 SQ M.PREDICTED [VOLUME RATE/AREA] IN SERUM, PLASMA OR BLOOD BY CREATININE- BASED FORMULA (CKD-EPI 2020) 98 05/24 Specimen Type: PLASMA No comment entered. Ordering Provider: EZEKIEL RUELAS R Report Released Date/Time: May 24, 2024 11:07 AM Reporting Lab: [place] [facility] [address] [place] [address] Performing Lab: [place] [facility] [address] [place] [address] [facility] HGA1C HEMOGLOBIN A1C/HEMOGLO BIN.TOTAL IN BLOOD 5.9 4.0 - 6.0 07/15 Specimen Type: BLOOD No comment entered. Ordering Provider: EZEKIEL RUELAS R Report Released Date/Time: Jul 15, 2023 10:59 AM Reporting Lab: [place] [facility] [address] [place] [address] Performing Lab: [place] [facility] [address] [place] [address] [facility] Vital Signs Combined list of inpatient and outpatient Vital Signs from Department of Defense and Veterans Affairs, ranging from 12 months to all on record, depending upon the facility. Vital Sign Value Date Comments Source SYSTOLIC BLOOD PRESSURE 112 07/03/2024 09:25:00 [facility] DIASTOLIC BLOOD PRESSURE 73 07/03/2024 09:25:00 [facility] PULSE OXIMETRY 99 07/03/2024 09:25:00 [facility] WEIGHT 213 07/03/2024 09:25:00 [facility] BMI 34 kg/m2 07/03/2024 09:25:00 [facility] TEMPERATURE 98.3 07/03/2024 09:25:00 [facility] PULSE 71 07/03/2024 09:25:00 [facility] RESPIRATION 18 07/03/2024 09:25:00 [facility] Encounters Combined list of: 1) Encounters from Department of [facility] Affairs facilities going backup to the last 18 months, not all VA inpatient encounters are included; 2) Encounters from the Department of [facility] facilities going backup to 280 months. Location Location Details Encounter Type Encounter Number Reason For Visit Attending Provider ADM Date DC Date Status Disposition Source [facility] Outpatient Encounter [id number] 07/15 [facility] Outpatient Encounter [id number] Diagnos is: ICD-10- CM Z00.01 Encount er for general adult medical exam EZEKIEL Stearns 07/15 [facility] Outpatient Encounter [id number] 07/20 [facility] [place] [facility] Outpatient Encounter [id number] 07/21 [place] [facility] [place] [facility] Outpatient Encounter [id number] 07/29 [place] [facility] Outpatient Encounter [id number] 08/12 [facility] Outpatient Encounter [id number] 08/12 [facility] [place] [facility] Outpatient Encounter [id number] 08/18 [place] [facility] OFF[facility] O/P EST LOW 20-29 MIN [id number] Diagnos is: ICD-10- CM R19.07 General ized intra-a bd and pelvic swellin g, mass and lump EZEKIEL RUELAS THERINE R 08/26 [facility] Outpatient Encounter [id number] MARCELLA,AP RIL L 11/29 [facility] Outpatient Encounter [id number] 12/09 [facility] OFFICE O/P EST LOW 20 MIN [id number] Diagnos is: ICD-10- CM R19.09 Other intra-a bdomina l and pelvic swellin g, mass and lump EZEKIEL RUELAS THERINE R 05/24 [facility] Outpatient Encounter [id number] 05/30 [facility] Outpatient Encounter [id number] 06/05 [facility] Outpatient Encounter [id number] 06/05 [facility] Outpatient Encounter [id number] 06/22 [facility] Outpatient Encounter [id number] Diagnos is: ICD-10- CM Z00.00 Encntr for general adult medical exam w/o abnorma l finding s EZEKIEL RUELAS THERINE R 07/03 [facility] Outpatient Encounter [id number] 07/03 [facility] Outpatient Encounter [id number] 07/27 [facility] Outpatient Encounter [id number] 08/07 [facility] [place] [facility] Out[facility] Encounter [id number] 08/28 [place] [facility] PRO PHONE CALL 11-20 MIN [id number] Diagnos is: ICD-10- CM Z3A.20 20 weeks gestati on of CL Dudley ALAN C 08/31 [place] [facility] Outpatient Encounter [id number] 09/06 [facility] PRO PHONE CALL 5-10 MIN [id number] Diagnos is: ICD-10- CM Z3A.11 11 weeks gestati on of CL Dudley C 09/[address] [facility] Outpatient Encounter [id number] 10/02 [facility] Outpatient Encounter [id number] Diagnos is: ICD-10- CM Z12.39 Encount er for oth screeni ng for maligna nt neoplas m of breast Froylan ROSEN M 10/04 [place] [facility] PH1 ASSMT&MGMT NQHP 5-10 [id number] Diagnos is: ICD-10- CM R68.89 Other general symptom s and signs CL VARGAS AN C 12/01 [place] [facility] Outpatient Encounter [id number] VARGASCL PANCHAL C 12/04 [facility] [place] [facility] PH1 ASSMT&MGMT NQHP 5-10 [id number] Diagnos is: ICD-10- CM Z3A.34 34 weeks gestati on of pregnan cy VARGASCL PANCHAL ALAN C 12/13 [place] [facility] Outpatient Encounter [id number] VARGASCL PANCHAL AN C 01/05 [facility] Social History Combined list of available smoking, tobacco, and other social history from Department of Defense and Veterans Affairs facilities. Social History Type Response Date Comment Sourc e Tobacco smoking status NHIS SC-TOBACCO USE EVERY DAY CIGARETTES 12/13/2024 [place] [facility] History of tobacco use [facility] TOBACCO SMOKES CONTEMPLATE QUIT 12/13/2024 [place] [facility]20[facility] [place] [facility] History of tobacco use SC-TOBACCO USE WI 30 MIN OF WAKEUP 07/03/2024 [facility] History of tobacco use VA-TOBACCO USER EVERY DAY 07/15/2023 [facility] History of tobacco use VA-TOBACCO USER EVERY DAY 06/23/2022 [facility] History of tobacco use VA-TOBACCO USER EVERY DAY 05/27/2021 [facility] History of tobacco use TOBACCO USER OFFERED MEDS 08/30/2018 [facility] History of tobacco use TOBACCO USER OFFERED MEDS 11/09/2017 [facility] History of tobacco use TOBACCO OFFERED PT MEDS (PROVIDER) 09/03/2015 [facility] History of tobacco use QUIT TOBACCO IN THE LAST 12 MONTHS 06/21/2014 [facility] History of tobacco use TOBACCO OFFERED STOP [facility]MOKING CLIN[facility] 05/19/2012 [facility] History of tobacco use TOBACCO OFFERED PT MEDS (PROVIDER) 11/23/2011 [facility] History of tobacco use TOBACCO OFFERED PT MEDS (PROVIDER) 08/28/2011 [facility] History of tobacco use TOBACCO OFFERED PT MEDS (PROVIDER) 04/30/2011 [facility] [place] [facility] History of tobacco use TOBACCO OFFERED PT MEDS (PROVIDER) 11/05/2010 [facility] History of tobacco use TOBACCO OFFERED PT MEDS (PROVIDER) 10/28/2010 [facility] Plan of Care List of future care activities from Department of Veterans Affairs facilities. Additional future care activities may be listed in the Assessment and Plan section. Date/Time Care Activity Care Activity Detail Facili ty 07/02/2025 AMBULATORY - MEDICINE AMBULATORY - MEDICI NE [facility]
--- OUTSIDE RECORDS SUMMARY | 2025-01-12 05:40 | XMS_ITS | Encounter Summary ---
Author Name [facility] [place] [facility] [place] Address [address] [place] [address] Care Team Providers Care Market Development Executive Name Role Phone MILLY RUELAS Primary Care Provider Unavail able Insurance Providers: All historical and current Section Date Range: From patient's date of to the date document was created. This section includes the names of all active insurance providers for the patient. Insurance Provider Type of Coverage Plan Name Start of Policy Coverage End of Policy Coverage Group Number Member ID Insurance Provider's Telephone Number Policy Damon's Name Patient's Relationship to Policy Damon [employer] ([employer]) PRESCRIPT ROGER Tuttle [facility] Oct 25, 2017 [id number] [phone] Wili ARDON PATIENT Selected Encounter This section includes the information on record at NH for the Encounter. Date/Time Encounter Type Encounter Description Reason Provider Source Dec 13, 2024 03:06 PM PH1 ASSMT&MGMT NQHP 5-10 TELEPHONE PRIMARY CARE ICD-10-CM Z3A.34 34 weeks gestation of JULIANE VARGAS IHAdalid Encounter Template Text not used by VA Assessments - Encounter Diagnoses This section includes the primary and secondary diagnoses documented for the Encounter. Date/Time Primary/Secondary Diagnosis Diagnosis Name Provider Source Dec 13, 2024 03:06 PM PRIMARY 34 weeks gestation of JULIANE VARGAS [facility] Social History: Smoking Status (Most current) and Tobacco Use (All prior to encounter date) This section includes the most current, and the historical, smoking and tobacco- related health factors from the [place] facility where the Encounter took place. Current Smoking Status This section includes the most current smoking, or tobacco-related health factor, from the [place] facility where the Encounter took place. Date/Time Current Smoking Status Comment Abena ity Dec 13, 2024 03:06 PM VA-TOBACCO USE EDITH RY DAY CIGARETTES [facility] Tobacco Use History This section includes a history of the smoking, or tobacco-related health factors, that were collected on or before the date of the Encounter. The data comes from the [place] facility where the Encounter took place. Date/Time Smoking Status/Tobacco Use Comment F acility Dec 13, 2024 03:06 PM VA-TOBACCO NEVER USED OTHER TYPE [facility] Dec 13, 2024 03:06 PM VA-TOBACCO USE EDITH RY DAY CIGARETTES [facility] Sep 19, 2024 03:22 PM [place] TOBACCO SMOKES DOES NOT [facility] Sep 19, 2024 03:22 PM VA-TOBACCO FORMER USER [facility] Sep 19, 2024 03:22 PM VA-TOBACCO QUIT < 1 YEAR [facility] Encounter Notes: All associated encounter notes This section contains the clinical notes associated to the Encounter. Date/Time Encounter Note(s) Provider Source Dec 13, 2024 03:06 PM WOMEN HEALTH NOTE : LOCAL TITLE: NH-MATERNITY CARE COORDINATION STANDARD TITLE: WOMEN HEALTH NOTE DATE OF NOTE: DEC 13, 2024@15:06 ENTRY DATE: DEC 13, 2024@15:06:51 AUTHOR: JULIANE VARGAS EXP COSIGNER: URGENCY: STATUS: COMPLETED MATERNITY CARE COORDINATION NOTE Purpose of the Call: Maternity Care Coordination Needs Third Trimester Information Patient's estimated Due Date: Weeks gestation at time of call: Weeks: 34 Days: 5 VA coverage of maternity/ care was discussed VA care coverage and obtaining non-VA health insurance coverage. VA coverage policies for -related education and support. VA coverage of nursing bras, breast pumps and supplies. VA coverage of hospitalizations, Emergency Care and the Emergency Treatment Notification process. VA coverage and process for obtaining medications prescribed by an approved Community Care provider. Guidance for addressing billing inquiries from an approved Community Care provider. Additional Comments: No bills yet. [place] did ask how long the baby would be covered so we discussed baby coverage for first 7 days of life. And following [place] will need to have a secondary coverage established. She verbalized understanding. Health Problems reviewed and updated. Active Problems: Code Description L40.9 Psoriasis ([facility] [id number]) M54.50 Low back pain ([facility] [id number]) 719.45 Hip Pain (ICD-9-CM 719.45) 720.2 Sacroiliitis (ICD-9-CM 720.2) J30.2 Seasonal allergic rhinitis ([facility] [id number]) F17.210 Nicotine dependence ([facility] [id number]) E66.8 Adult-onset obesity ([facility] 428129208) F33.8 Depressed ([facility] 43921032) F41.9 Anxiety disorder ([facility] [id number]) E78.5 Hyperlipidemia ([facility] 48917456) E55.9 Vitamin D Deficiency ([facility] [id number]) Z77.29 Exposure to potentially hazardous substance ([facility] [id number]) The patient reported no health problems. Medication Review The following medications are listed as Active in the patient's [place] Health Record: Active Outpatient Medications (including Supplies): BREAST MILK STORAGE BAG USE BAG(S) DIRECTED ACTIVE Indication: FOR BREAST MILK STORAGE MULTIVIT W/MINERALS, CAP/TAB TAKE 1 TABLET BY ACTIVE MOUTH ONCE A DAY TAKE WITH FOOD Indication: FOR NUTRITION/DIETARY SUPPLEMENTATION NYSTATIN [id number] UNT/GM CREAM APPLY LIBERALLY TO AFFECTED ACTIVE AREA(S) ONCE A DAY NEEDED - TOPICAL USE ONLY. Indication: FOR FUNGAL SKIN INFECTION Medications (including supplements and herbals) reviewed. Patient reported: Patient reports no medication changes. Additional comments: Tylenol PRN and TUMS PRN Tobacco Products The patient smokes cigarettes every day. The patient has never used other types of tobacco. Patient is contemplating quitting the use of tobacco products, resources/referral offered. Additional comments: [place] declined additional rescources at this time. Verblizes she is attempting to quit on her own at her own pace. Will reach out to staff if additional resouces are needed. Homelessness and Food Insecurity The [place] reports the following: Within the past 12 months, you worried whether your food would run out before you got money to buy more. Never true Within the past 12 months, the food you bought just didn't last and you didn't have money to get more. Never true Depression, Anxiety, and Suicide Screening Total scores range from a minimum of 0 to a maximum of 30. Mothers who score above 13 are likely to be suffering from a depressive illness of varying severity. A careful clinical assessment should be carried out to confirm the diagnosis. The scale indicates how the mother has felt during the previous week. The [place] Depression (EPDS) scale was performed and score was 1. 1. I have been able to laugh and see the funny side of things As much as I always could 2. I have looked forward with enjoyment to things As much as I ever did 3. I have blamed myself unnecessarily when things went wrong Not very often 4. I have been anxious or worried for no good reason No, not at all 5. I have felt scared or panicky for no very good reason No, not at all 6. Things have been getting on top of me No, I have been coping as well as ever 7. I have been so unhappy that I have had difficulty sleeping No, not at all 8. I have felt sad or miserable No, not at all 9. I have been so unhappy that I have been crying No, never 10. The thought of harming myself has occurred to me Never Score 0-9: EPDS Screen Negative. If mood worsens, patient encouraged to reach out to [facility], their mental health provider, primary care provider, or maternity provider; Veterans' Crisis Line number provided (Dial 988 then Press 1). Relational health and well-being RHS Screen Environmental Check Screening was not completed at this time due to: Another adult present Safe to Sleep & Sudden Syndrome (SIDS) Discussed safe sleep practices, provided resources and referred as appropriate. /chestfeeding and supplies Plans to breastfeed/chestfeed. Supplies(e.g. pump, bras, etc) ordered. Additional comments: has not yet received call or supplies from [employer]. Will follow up. Classes: Childbirth, , , and Parenting Additional comments: [facility] has log in but has not yet signed in. [place] is in need of a car seat if one is available. Educated [place] it will be sent to [facility] and then she will receive a call when it is ready for pick-up. Contact Information and End Call Provided [facility] and VA Primary Care provider contact information. Questions answered, call summarized. 8 minutes on phone. 12 minutes spent on chart review. /marsha Vargas RN Signed: 12/13/2024 15:27 JULIANE VARGAS [facility]
--- OUTSIDE RECORDS SUMMARY | 2025-01-12 05:40 | XMS_ITS ---
Author Name [facility] [place] [facility] [place] Address [address] [place] [address] Care Team Providers Care Machine Bookkeeper Name Role Phone MILLY RUELAS Primary Care [...] Damon's Name Patient's Relationship to Policy Damon [employer] ([employer]) PRESCRIPT ROGER Tuttle [facility] Oct 25, 2017 [id number] [phone] Wili ARDON PATIENT Selected Encounter This section includes the information on record at [place] for the Encounter. Date/Time Encounter Type Encounter Description Reason Provider Source Jan 05, 2025 02:41 PM Outpatient Encounter [facility] JULIANE VARGAS Encounter Template Text not used by [place] Plan of Treatment: Future Appointments (+ 6 months) and Future Tests (+/- 45 days) The Plan of Treatment section includes future care activities for the patient from all VA treatmentfacilities. This section includes future appointments and future orders which are active, pending or scheduled. Future Appointments This section includes appointments that were scheduled to occur 6 months from the date of the Encounter, up to a maximum of 20 appointments. The data comes from all [place] treatment facilities. Appointment Date/Time Appointment Type Appointme nt Facility Name Jul 02, 2025 09:00 AM AMBULATORY - MEDICINE [facility] Social History: Smoking Status (Most current) and Tobacco Use (All prior to encounter date) This section includes the most current, and the historical, smoking and tobacco- related health factors from the [place] facility where the Encounter took place. Current Smoking Status This section includes the most current smoking, or tobacco-related health factor, from the [place] facility where the Encounter took place. Date/Time Current Smoking Status Comment Facil ity Jun 23, 2022 04:22 PM VA-TOBACCO USER EVERY DAY [facility] Tobacco Use History This section includes a history of the smoking, or tobacco-related health factors, that were collected on or before the date of the Encounter. The data comes from the [facility] where the Encounter took place. Date/Time Smoking Status/Tobacco Use Comment F acility Jun 23, 2022 04:22 PM VA-TOBACCO USE ADVICE [facility] Jun 23, 2022 04:22 PM VA-TOBACCO USE DIRECTOR HRIS NO [facility] Jun 23, 2022 04:22 PM VA-TOBACCO USE MED NO [facility] Jun 23, 2022 04:22 PM VA-TOBACCO USE WI 30 MIN OF WAKEUP [facility] Jun 23, 2022 04:22 PM VA-TOBACCO USER EVERY DAY [facility] Encounter Notes: All associated encounter notes This section contains the clinical notes associated to the Encounter. Date/Time Encounter Note(s) Provider Source Jan 05, 2025 02:41 PM COMMUNICATION NOTE : LOCAL TITLE: SELF ALERT NOTE STANDARD TITLE: COMMUNICATION NOTE DATE OF NOTE: JAN 05, 2025@14:41 ENTRY DATE: JAN 05, 2025@14:41:20 AUTHOR: JULIANE VARGAS EXP COSIGNER: URGENCY: STATUS: COMPLETED Tickler/Reminder: remind me on: January 08, 2025@00:00 Tickler/Reminder Text: Mail care package/car seat. Follow up on delivery of items. /jen/ Jhonatan Vargas RN Signed: 01/05/2025 14:42 JULIANE VARGAS [facility]
--- NOTE | 2025-01-12 06:17 | P.HP_ITS ---
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 History of Present Illness Alexandra Alejandro is a 39 year old female EDC January 19, 2025 At 39 w 0 d No complications Admitted for repeat No c/o + active movements h/o c-sections x two Present Details : 3 Para: 2 Labs Rubella: Immune RPR: Negative GBS: Negative Medications/Allergies Home Medications ?Medication ?Instructions ?Recorded ?Confirmed ?Last Taken ?Type vits no.126-ferrous fum 1 tab PO 1XD 07/31/24 01/12/25 Unknown History 28 mg iron-folic acid 800 mcg tablet (Classic ) acetaminophen 325 mg capsule 325 mg PO QID PRN Pain, M ild 09/25/24 01/12/25 Unknown History Allergies Allergy/AdvReac Type Severity Reaction Status Date / Time No Known Allergies Allergy Verified 01/08/25 10:18 PFSH 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 PFSH: Medical History delivery delivered Family History Father Hypertension Diabetes High cholesterol Social History Smoking and tobacco/nicotine status: current some day tobacco/nicotine user History History History 3 Term 2 0 Miscarriages/Ectopic 0 Living Children 2 Care VIRAL Calculator Estimated Delivery Date Method Current WG Current Estimate 01/19/25 Ultrasound #1 39w 0d Other Estimates 01/27/25 LMP (Certain) 37w 6d Specific Issues/Plans * SUPERVISION OF * Hx X 2: plan for repeat * NAUSEA: BRAT diet, otc remedies * HEADACHES: taking tylenol extra strength * ADVANCED MATERNAL AGE: declined genetic screenings, early 1 hr GTT done Vitals/I&O/Wt Last Vital Signs Pulse 81 01/12/25 06:13 Resp 16 01/12/25 06:02 BP 127/74 01/12/25 06:13 O2 Del Method Room Air 01/12/25 05:54 Weight last 48 hrs Weight 211 lb Weight 211 lb Physical Exam Narrative: Weight 211 lbs; 5?7? VS normal General comfortable, awake, alert Lungs: clear Cor: RRR FH 38 cm Ext: no edema Results Labs OB ([facility]): Obstetrics US 12/20/24 Blood Type AB Positive 07/31/24 Antibody Screen Negative 07/31/24 Hct 38.4 % (36-47) 07/31/24 Hgb 12.90 g/dL (11.27-16.99) 07/31/24 Rho(D) Type Rh positive 07/31/24 Plt Count 304 10^3/cmm (157-399) 07/31/24 Hep Bs Antigen Non-reactive (Nonreactive) 07/31/24 Hepatitis C Antibody Non-reactive (Nonreactive) 07/31/24 Rubella IgG Antibody 402.9 IU/mL (0.0-10.0) H 07/31/24 RPR Nonreactive (Nonreactive) 07/31/24 HIV 1&2 Ab & HIV 1 Ag Non-reactive (Non-Reactiv) 07/31/24 TSH 1.80 uIU/mL (0.27-4.20) 07/31/24 C.trachomatis RNA (TMA) Not detected (NOT DETECTED) N.gonorrhoeae RNA (TMA) Not detected (NOT DETECTED) T. vaginalis Amp RNA Not detected (NOT DETECTED) 07/31/24 Chlamydia/GC Comment See note 07/31/24 Glucose 1 Hr 50 gm 138 mg/dL (85-140) 10/02/24 HCG, Qual Positive (Negative) H 07/31/24 Urine Opiates Screen Negative ng/mL (Negative) 07/31/24 Ur Barbiturates Screen Negative ng/mL (Negative) 07/31/24 Ur Phencyclidine Scrn Negative ng/mL (Negative) 07/31/24 Ur Amphetamines Screen Negative ng/mL (Negative) 07/31/24 U Benzodiazepines Scrn Negative ng/mL (Negative) 07/31/24 Urine Cocaine Screen Negative ng/mL (Negative) 07/31/24 U Marijuana (THC) Screen Negative ng/mL (Negative) 07/31/24 Micro Urine Specimen 07/31/24 A&P Assessment and plan (1) : 39 w 0 d Fetus reassuring h/o c-sections x two now for repeat procedure and risks explained to patient risks include, but not limited to, infection, bleeding, injury to internal organs, anesthesia, blood transfusions patient understands and wants to proceed Qualifiers: Weeks of gestation: 16 weeks Qualified Code(s): Z3A.16 - 16 weeks gestation of PDMP PDMP Reviewed: Not Reviewed Attestations Medical Necessity Statement*: patient at 39 w 0 d, admitted for repeat Coding Level of Care Code Acute Code for Chg Fwd Diagnoses 16 weeks gestation of Z3A.16 Weeks of gestation: 16 weeks Time Spent (min) 30
--- NOTE | 2025-01-12 06:24 | P.ANESUD_ITS ---
Pre-Anesthetic Update Pre-Anesthetic Assessment: Date of Surgery/Procedure: 01/12/25 Proposed Procedure: Operation Date: 01/12/25 07:20 Proposed Procedures p Section Repeat 69837, O34.219(Not Applicable) - Peter Kam MD Any changes to Pre-Anesthetic Assessment?: No Changes from Pre- Anesthetic Assessment: No changes since patient was seen in preoperative clinic. Current smoker. Patient does admit to drinking sips of water this a.m. Most recent at 530. Will wait the full 2 hours prior to beginning . ASA 2 Vitals: Pulse Rate 81 01/12/25 06:13 Pulse Rhythm Regular 01/12/25 05:54 Pulse Strength 3+ Normal 01/12/25 05:54 Respiratory Rate 16 01/12/25 06:02 Respiratory Effort Spontaneous, Non- Labored 01/12/25 05:54 Respiratory Depth Normal 01/12/25 05:54 Respiratory Patter n Normal 01/12/25 05:54 Blood Pressure 127/74 01/12/25 06:13 Oxygen Delivery Me thod Room Air 01/12/25 05:54 Cardiac Studies: No Data to Display
[2025-01-12 06:43] LABS: Basophils # 0.1 10^3/uL (0.0-0.1); Basophils % 0.8 %; Eosinophils # 0.3 10^3/uL (0.0-0.8); Eosinophils % 1.9 %; Hematocrit 36.8 % (36-47); Lymphocytes # 2.1 10^3/uL (0.8-4.8); Lymphocytes % 14.3 %; Mean Corpuscular HGB Conc 33.7 g/dL (30-55); Mean Corpuscular Hemoglobin 29.6 pg (27-33); Mean Corpuscular Volume 87.8 fl (85-98); Mean Platelet Volume 12.2 fL (7.4-10.4); Monocytes # 0.8 10^3/uL (0.2-0.9); Monocytes % 5.6 %; Neutrophils # 11.21 10^3/uL (1.8-7.7); Neutrophils % 76.9 %; Nucleated Red Blood Cells % 0 %; Platelet Count 240 10^3/cmm (157-399); Red Blood Count 4.19 10^6/uL (3.85-5.65); Red Cell Distribution Width 13.4 % (12.1-15.1); White Blood Count 14.57 10^3/uL (3.29-11.43)
[2025-01-12] MEDS: ceFAZolin 2,000 mg SDV 2000 MG IVP (07:06)
[2025-01-12] MEDS: famotidine 20 mg/2 mL INJ IVP (07:06)
[2025-01-12] MEDS: metoclopramide 5 mg/mL SDV 2 mL 10 MG IVP (07:06)
[2025-01-12] MEDS: sodium chloride 0.9% 1,000 ML 999 ML IV ×2 (07:06→16:51)
[2025-01-12] MEDS: citric acid-sodium citrate 30 mL UDC PO (07:07)
--- NOTE | 2025-01-12 07:39 | W.PM.OPSUD ---
Surgery/Procedure H&P Update DATE OF PROCEDURE: January 12, 2025 DATE H&P PERFORMED: 01/12/25 H&P UPDATE INFORMATION: I have reviewed H&P completed within last 30 days, I have examined patient prior to procedure and No changes to prior documentation PLANNED PROCEDURE: Operation Date: 01/12/25 07:20 Proposed Procedures p Section Repeat 06171, O34.219(Not Applicable) - Peter Kam MD
--- NOTE | 2025-01-12 09:15 | PM.OP ---
Operative Report Date of procedure: January 12, 2025 Pre-op diagnosis: 39 weeks gestation Previous x two For repeat Post-op diagnosis: same Post-op findings: Vigorous Normal placenta and cord Normal uterus, tubes, and ovaries Extensive intraabdominal adhesions Procedure done: Repeat low-transverse Implants: none Specimens removed/disposition: placenta and cord, discarded Surgeon: Peter Kam MD Anesthesia: Spinal Estimated blood loss (mL): 500 Complications: none Findings: Vigorous Normal placenta and cord Normal uterus, tubes, and ovaries Extensive intraabdominal adhesions Disposition: floor Brief History: Patient with previous x two, scheduled for repeat . Procedure: Informed consent signed. Patient was taken to the operating room, placed supine in the left lateral tilt position. Spinal anesthesia and a Cantu catheter were already placed. The abdomen was prepped and draped in the usual sterile fashion. A Pfannenstiel incision was made over an old scar and carried down through skin and subcutaneous tissue and fascia. The fascial incision was extended laterally with Magana scissors. The fascia was from the underlying rectus muscles. The rectus muscles were split in the midline. The peritoneum was entered bluntly avoiding underlying organs. Extensive intra-abdominal adhesions involving the abdomen above the uterus was noted, so much so that an Tarun-O retractor cannot be placed. The uterus and lower segment and bladder were, however, relatively free of adhesions. A bladder flap was created. A low transverse uterine incision was made and extended laterally bluntly avoiding the uterine vessels. Clear amniotic fluid was seen. The baby was delivered in cephalic presentation atraumatically. The baby was suctioned. The cord was clamped and cut and the baby was handed to an awaiting pediatric staff. Cord blood was obtained. The placenta was manually removed intact. The uterus was exteriorized. The uterine cavity was bluntly curetted with wet laps. The uterine incision was then closed with a continuous interlocking stitch of O chromic. Adequate hemostasis was seen. No bleeding was seen. The uterine incision was again inspected and found to have good hemostasis. The uterus was returned into the abdominal cavity. The fascia was then closed with a continuous stitch of O-Vicryl. Additional interrupted stitches of O-Vicryl were used for fascial closure. The subcutaneous tissue was irrigated and inspected for hemostasis. The skin was then reapproximated using Insorb hans. Postoperative condition stable Disposition to recovery room Estimated blood loss 500 cc, no replacement Sponge, needle, and instrument counts were correct x two There were no complications
--- NOTE | 2025-01-12 09:38 | ANE.PACU2 ---
Inpatient post-anesthesia follow up: Airway intact: Yes Vital signs: Temperature 98.2 F Pulse Rate 66 Respiratory Rate 16 Blood Pressure 114/66 Pulse Oximetry 98 Oxygen Delivery Me thod Room Air Oxygen Flow Rate Fraction of Inspir ed Oxygen Hydration adequate: Yes Nausea and vomiting: No Pain level: 2 Mental status: Baseline
[2025-01-12] MEDS: acetaminophen 325 mg Tablet 650 MG PO (11:38)
[2025-01-12] MEDS: dextrose 5%-lactated ringers 1,000 ML 125 ML IV ×2 (11:40→18:33)
[2025-01-12] MEDS: ketorolac 30 mg/mL INJ IVP ×2 (14:31→20:49)
--- NOTE | 2025-01-12 15:01 | PC.NURSE ---
Pt up to chair without assistance. lauren care performed and pad changed. Pt remains up in chair, juice and water provided. Call light in reach.
--- NOTE | 2025-01-12 17:00 | PC.NURSE ---
urine output 30mL over 2 hours. NS bolus started per orders. pt encouraged to increase fluid intake. more juice given, ice water still full.
[2025-01-12 22:19] LABS: Hematocrit 32.5 % (36-47); Mean Corpuscular HGB Conc 32.9 g/dL (30-55); Mean Corpuscular Hemoglobin 29.4 pg (27-33); Mean Corpuscular Volume 89.3 fl (85-98); Mean Platelet Volume 12.7 fL (7.4-10.4); Platelet Count 215 10^3/cmm (157-399); Red Blood Count 3.64 10^6/uL (3.85-5.65); Red Cell Distribution Width 13.4 % (12.1-15.1); White Blood Count 13.89 10^3/uL (3.29-11.43)
[2025-01-13] MEDS: ketorolac 30 mg/mL INJ IVP (02:39)
[2025-01-13 04:24] VITALS: BP 118/65; PULSE 95
[2025-01-13 09:01] VITALS: BP 120/56; PULSE 83
[2025-01-13] MEDS: ibuprofen 800 mg tablet PO ×3 (09:04→21:11)
[2025-01-13] MEDS: PRENATAL VIT NO.130/IRON/FOLIC 1 EACH TABLET PO (09:04)
[2025-01-13] MEDS: ferrous sulfate EC 325 mg Tablet PO (09:05)
[2025-01-13] MEDS: docusate sodium 100 mg Capsule PO ×2 (09:05→21:11)
--- NOTE | 2025-01-13 12:55 | P.PN_ITS ---
Subjective 2 Subjective: Status post delivery day 1 Vitals/I&O/Wt Last Vital Signs Temp 98.2 F 01/12/25 16:27 Pulse 83 01/13/25 09:01 Resp 15 01/12/25 16:27 BP 120/56 01/13/25 09:01 Pulse Ox 98 01/12/25 09:20 O2 Del Method Room Air 01/12/25 09:20 01/12/25 01/13/25 01/13/25 22:59 06:59 14:59 Intake Total 2447.917 / 3947.917 Output Total 535 / 1385 1000 / 2385 Balance 1912.917 / 2562.917 -1000 / 1562.917 Weight last 48 hrs Weight 95.708 kg Weight 95.708 kg Physical Exam 2 Narrative: GA; alert and oriented x 3 HEENT: normal Breasts: engorged Nipples - skin intact Lungs; clear to auscultation Heart: regular rhythm, no murmurs. Abd: Appropriately tender. BS+. Uterine fundus below umbilicus. No Fundal Tenderness, minimal tenderness, incision clean and dry, no redness, pain or edema Perineum: normal lochia. Extremities: no edema, no cyanosis, no tenderness. Urinary Catheter Management: Cantu: Cath Placed During This Visit: yes, but has since been removed by the nurse Reason for Continuing Indwelling Catheter: Decision to DC Catheter Urinary Catheter Date of Insertion: 01/12/25 Urinary Catheter Time of Insertion: 07:42 Date Urinary Catheter Removed: 01/13/25 Time Urinary Catheter Discontinued: 02:50 Data 01/12/25 20:53 A&P Assessment and plan (1) delivery, delivered, current hospitalization: Mrs. Koog 39-year-old female status post repeat low-transverse delivery postoperative day 1. She is afebrile and hemodynamically stable postoperative day 1. Pain well under control. Tolerating diet well. Ambulating without difficulty. Plan Continue /postop observation PDMP PDMP Reviewed: Not Reviewed Attestations 2 Medical Necessity Statement*: In my professional opinion per admitting diagnosis. Coding Level of Care Code Acute Code for Chg Fwd Diagnoses delivery, delivered, current hospitalization O82
[2025-01-13] MEDS: acetaminophen 325 mg Tablet 650 MG PO (12:59)
[2025-01-13] MEDS: simethicone 80 mg Chew PO (13:00)
[2025-01-13 17:08] VITALS: BP 130/60; PULSE 72
[2025-01-13 21:11] VITALS: RESP 16; TEMP 36.8
[2025-01-13 21:12] VITALS: BP 133/93; PULSE 82
[2025-01-14] MEDS: acetaminophen 325 mg Tablet 650 MG PO (04:38)
--- NOTE | 2025-01-14 04:38 | P.DS_ITS ---
Discharge Providers [facility] Date of Admission: 01/12/25 05:35 Date of Discharge: 01/14/25 Attending Provider at Admission: Peter Kam MD Attending Provider at Discharge: Quan Adam MD Primary [facility]: Dr. Kam Primary Care Provider: MERI Nguyen Diagnoses at Discharge Discharge Diagnosis (1) delivery, delivered, current hospitalization: Status: Acute Reason for Visit Reason for Visit: Hospital Course Hospital Course Mrs. Alejandro 39 y/o female with an EDC January 19, 2025 and EGA at 39 w 0 d was admitted for repeat delivery. Post operative observation has been uneventful. She is afebrile hemodynamically stable postoperative day 2. Tolerating diet well. Ambulating without difficulty. She was counseled regarding pelvic rest for 6 weeks (no sex, no tampons, no vaginal douches). Return to the emergency room if any fever, increased bleeding or pain. Information Peripartum Data: Delivery Method: Physical Exam Narrative: GA; alert and oriented x 3 HEENT: normal Breasts: engorged Nipples - skin intact Lungs; clear to auscultation Heart: regular rhythm, no murmurs. Abd: Appropriately tender. BS+. Uterine fundus below umbilicus. No Fundal Tenderness, minimal tenderness, incision clean and dry, no redness, pain or edema Perineum: normal lochia. Extremities: no edema, no cyanosis, no tenderness. Urinary Catheter Management: Cantu: Cath Placed During This Visit: yes, but has since been removed by the nurse Reason for Continuing Indwelling Catheter: Decision to DC Catheter Urinary Catheter Date of Insertion: 01/12/25 Urinary Catheter Time of Insertion: 07:42 Date Urinary Catheter Removed: 01/13/25 Time Urinary Catheter Discontinued: 02:50 History History History 3 Term 2 0 Miscarriages/Ectopic 0 Living Children 2 Discharge Data Studies Completed and Pending Laboratory Results WBC 13.89 10^3/uL (3.29-11.43) H 01/12/25 20:53 RBC 3.64 10^6/uL (3.85-5.65) L 01/12/25 20:53 Hgb 10.70 g/dL (11.27-16.99) L 01/12/25 20:53 Hct 32.5 % (36-47) L 01/12/25 20:53 MCV 89.3 fl (85-98) 01/12/25 20:53 MCH 29.4 pg (27-33) 01/12/25 20:53 MCHC 32.9 g/dL (30-55) 01/12/25 20:53 RDW 13.4 % (12.1-15.1) 01/12/25 20:53 Plt Count 215 10^3/cmm (157-399) 01/12/25 20:53 MPV 12.7 fL (7.4-10.4) H 01/12/25 20:53 Neut % (Auto) 76.9 % 01/12/25 06:22 Lymph % (Auto) 14.3 % 01/12/25 06:22 Jackson % (Auto) 5.6 % 01/12/25 06:22 Eos % (Auto) 1.9 % 01/12/25 06:22 Baso % (Auto) 0.8 % 01/12/25 06:22 Neut # (Auto) 11.21 10^3/uL (1.8-7.7) H 01/12/25 06:22 Lymph # (Auto) 2.1 10^3/uL (0.8-4.8) 01/12/25 06:22 Jackson # (Auto) 0.8 10^3/uL (0.2-0.9) 01/12/25 06:22 Eos # (Auto) 0.3 10^3/uL (0.0-0.8) 01/12/25 06:22 Baso # (Auto) 0.1 10^3/uL (0.0-0.1) 01/12/25 06:22 Nucleated RBC % (auto) 0 % 01/12/25 06:22 Nucleated RBCs # 0.0 /100WBC 01/12/25 06:22 Blood Type AB Positive 01/12/25 06:22 Rho(D) Type Rh positive 01/12/25 06:22 Antibody Screen Negative 01/12/25 06:22 Vitals Last Vital Signs Temp 98.2 F 01/13/25 21:11 Pulse 82 01/13/25 21:12 Resp 16 01/13/25 21:11 BP 133/93 01/13/25 21:12 Pulse Ox 98 01/12/25 09:20 O2 Del Method Room Air 01/13/25 21:11 Results Labs OB ([facility]): Obstetrics US 12/20/24 Blood Type AB Positive 01/12/25 Antibody Screen Negative 01/12/25 Hct 32.5 % (36-47) L 01/12/25 Hgb 10.70 g/dL (11.27-16.99) L 01/12/25 Rho(D) Type Rh positive 01/12/25 Plt Count 215 10^3/cmm (157-399) 01/12/25 Hep Bs Antigen Non-reactive (Nonreactive) 07/31/24 Hepatitis C Antibody Non-reactive (Nonreactive) 07/31/24 Rubella IgG Antibody 402.9 IU/mL (0.0-10.0) H 07/31/24 RPR Nonreactive (Nonreactive) 07/31/24 HIV 1&2 Ab & HIV 1 Ag Non-reactive (Non-Reactiv) 07/31/24 TSH 1.80 uIU/mL (0.27-4.20) 07/31/24 C.trachomatis RNA (TMA) Not detected (NOT DETECTED) N.gonorrhoeae RNA (TMA) Not detected (NOT DETECTED) T. vaginalis Amp RNA Not detected (NOT DETECTED) 07/31/24 Chlamydia/GC Comment See note 07/31/24 Glucose 1 Hr 50 gm 138 mg/dL (85-140) 10/02/24 HCG, Qual Positive (Negative) H 07/31/24 Urine Opiates Screen Negative ng/mL (Negative) 07/31/24 Ur Barbiturates Screen Negative ng/mL (Negative) 07/31/24 Ur Phencyclidine Scrn Negative ng/mL (Negative) 07/31/24 Ur Amphetamines Screen Negative ng/mL (Negative) 07/31/24 U Benzodiazepines Scrn Negative ng/mL (Negative) 07/31/24 Urine Cocaine Screen Negative ng/mL (Negative) 07/31/24 U Marijuana (THC) Screen Negative ng/mL (Negative) 07/31/24 Micro Urine Specimen 07/31/24 Discharge Plan Discharge Patient Disposition: Home Condition: Stable Prescriptions: New hydrocodone-acetaminophen 5-325 mg tablet 1 tab PO Q4H PRN (Reason: pain) Qty: 30 0RF ibuprofen 800 mg tablet 800 mg PO TID PRN (Reason: pain) Qty: 60 0RF acetaminophen 325 mg capsule 325 mg PO Q4H PRN (Reason: fever or pain) Qty: 60 0RF docusate sodium [Colace] 100 mg capsule 100 mg PO BID Qty: 60 0RF ferrous sulfate [Iron (ferrous sulfate)] 325 mg (65 mg iron) tablet 325 mg PO BID Qty: 60 0RF Continued Classic 28 mg iron- 800 mcg tablet 1 tab PO 1XD acetaminophen 325 mg capsule 325 mg PO QID PRN (Reason: Pain, Mild) Discharge Orders: Discharge Order (Routine); Ordered 01/14/25 Ordered By: Quan Adam Referrals: Peter Kam MD [Physician] - 2 weeks Discharge Diet: Usual diet Discharge Activity: Limit activity as instructed Patient Instructions: Depression (DC), Bleeding (DC), Preeclampsia and Eclampsia After Delivery (GEN), Hemorrhage (DC), OB [facility], OB Discharge Report, OB Food/Drug Interaction Guide, OB Care at Home, Opioid Safety, OB Home Care, (GEN), Caring for Your Baby (GEN), Hemorrhage (GEN), Your Tyler's Appearance (GEN) Activity Restrictions/Additional Instructions: 1. Please call [facility] on next working day to make your post-operative appointment in [address] Kam. 2. Please stay home until you come back to the clinic on first post- hospatilization check up. 3. Please follow instructions on your medications CAREFULLY. 4. If you have abdominal incision, do not cover it unless dressing is necessary because of drainage. OK to shower, but avoid bath. Leave steri-strips until they fall off. If they are still on one week after surgery, you may remove them. 5. If you had vaginal surgery or vaginal repair, Dr. Adam may instruct you to take SITZ bath. 6. Yellow, blood tinged odorous vaginal discharge is usually normal after hysterectomy or vaginal surgeries. 7. No SEXUAL INTERCOURSE, tampons, or douches until you are completely released from the post-operative care. 8. Avoid constipation by eating right and maybe using some Metamucil or Milk of Magnesia. 9. All prescription refills are given during the working hours. Please do no wait till it runs out. Call the clinic at [phone] before your medication runs out. The clinic will get in touch with your doctor to prescribe medications if necessary. 10. Please remain within 40 mile radius from our hospital because emergencies do happen now and then during the post-operative period. 11. If you have stairs at home, take one step at a time slowly and minimize the number of trips. It helps to stay in one floor for the next few days. No lifting except what you can lift by one hand until you are released from the post-operative care. 12. Driving is discouraged until you are well healed. It may be 3-4 weeks before you feel strong enough to drive. You should be able to turn and look through the rear window without pain and you should be able to push the brake pedal very hard without pain before you drive. No fast rules, but SAFETY should be your primary concern. DO NOT drive if you are on sedating medications such as narcotics. 13. Call the clinic (during working hours) to make urgent appointment or go to the Emergency room, if any of the following occurs: i. Vaginal bleeding becomes heavy, more than a period. ii. Incision becomes red and sore, or drains pus. iii. Your TEMPERATURE is over 100.4F or you have chill. iv. IV site becomes red and swollen (a little ``knot?? is usually OK) v. Persistent nausea and vomiting vi. Persistent constipation or diarrhea vii. Rash or allergic reaction to medications. Discharge Attestations [facility] [facility] Time Spent in Discharge Care*: greater than 30 min Coding Level of Care Code Acute Code for Chg Fwd Diagnoses delivery, delivered, current hospitalization O82
[2025-01-14 04:40] VITALS: BP 128/60; PULSE 79; RESP 16; TEMP 36.8
[2025-01-14] MEDS: docusate sodium 100 mg Capsule PO (10:56)
[2025-01-14] MEDS: ibuprofen 800 mg tablet PO (10:56)
[2025-01-14] MEDS: PRENATAL VIT NO.130/IRON/FOLIC 1 EACH TABLET PO (10:56)
[2025-01-14 10:57] VITALS: RESP 18
[2025-01-14] MEDS: oxyCODONE-APAP 5-325 mg Tablet PO (10:57)
[2025-01-14 11:29] VITALS: BP 139/64; PULSE 68
[2025-01-14 11:36] VITALS: BP 139/64; PULSE 68; RESP 16; TEMP 36.9; O2SAT 99
== END 2025-01-14 11:47 | disposition home or self-care (01) | DRG 788 ==
PROVIDERS: Admitting Provider Obstetrics & Gynecology; PCP Nurse Practitioner; Visit Provider Obstetrics & Gynecology
PROC: 10D00Z1 Extraction of Products of Conception, Low, Open Approach (ICD-10-PCS; CPT 59514; principal; 2025-01-12 07:00)
DX: O34.211 Maternal care for low transverse scar from previous cesarean delivery (principal); N85.8 Other specified noninflammatory disorders of uterus; Z3A.39 39 weeks gestation of pregnancy; Z37.0 Single live birth
CPT/HCPCS: 36415; 51702; 59025; 59409; 85025; 85027; 86850; 86900; 96374; 96376; 99211; J0690; J1885; J2274; J2371; J2405; J2765; J3010; J3490; J7030; J7121; J9999

== ENCOUNTER → 2025-06-05 14:27 | Outpatient (BNVA) | payer OTHER, SELFPAY | PROVIDERS: PCP Nurse Practitioner; Referring Provider Nurse Practitioner; Visit Provider Psychiatry & Neurology Neurology | DX: R29.898 Other symptoms and signs involving the musculoskeletal system (principal); R20.0 Anesthesia of skin; R20.2 Paresthesia of skin; M79.641 Pain in right hand | CPT/HCPCS: 95912 ==

== ENCOUNTER → 2025-08-23 13:45 | Outpatient (BNVA) | payer OTHER, SELFPAY | PROVIDERS: PCP Nurse Practitioner; Visit Provider Nurse Practitioner Women's Health | DX: Z34.80 Encounter for supervision of other normal pregnancy, unspecified trimester (principal); Z34.90 Encounter for supervision of normal pregnancy, unspecified, unspecified trimester | CPT/HCPCS: 81000; 81025; 84702 ==